=== PATIENT | male | born 1965 | race Caucasian/White ===

== ENCOUNTER 2022-04-17 08:12 | Outpatient (CLI) | payer SELFPAY ==
[2022-04-17 13:05] LABS: Chloride* 105 mmol/L (96-114); Sodium* 138 mmol/L (135-149)
[2022-04-17 13:06] LABS: Potassium* 4.7 mmol/L (3.6-5.1)
[2022-04-17 13:08] LABS: Carbon Dioxide* 26 mmol/L (20-32); Cholesterol* 200 mg/dL (90-199); Estimated Glomerular Filt Rate 87 ml/min
[2022-04-17 13:09] LABS: Blood Urea Nitrogen* 18 mg/dL (7-30); Glucose* 99 mg/dL (60-115); HDL Cholesterol* 72 mg/dL (>=40); LDL Cholesterol Calculated 97 mg/dL (<100); Triglycerides* 155 mg/dL (40-149)
== END 2022-04-17 08:13 | disposition home or self-care (01) ==
PROVIDERS: PCP Family Medicine; Visit Provider Family Medicine
DX: E78.5 Hyperlipidemia, unspecified (principal); I10 Essential (primary) hypertension; E66.9 Obesity, unspecified; F32.9 Major depressive disorder, single episode, unspecified
CPT/HCPCS: 80048; 80061

== ENCOUNTER 2023-06-11 10:32 | Outpatient (CLI) | payer OTHER, SELFPAY | END 2023-06-11 10:33 | disposition home or self-care (01) | PROVIDERS: PCP Family Medicine; Visit Provider Family Medicine | DX: Z00.00 Encounter for general adult medical examination without abnormal findings (principal); I10 Essential (primary) hypertension; E78.5 Hyperlipidemia, unspecified; E66.9 Obesity, unspecified; F41.8 Other specified anxiety disorders; Z12.5 Encounter for screening for malignant neoplasm of prostate | CPT/HCPCS: 80048; 80061; 84153 ==

== ENCOUNTER 2024-09-01 10:09 | Outpatient (CLI) | payer OTHER, SELFPAY | END 2024-09-01 10:10 | disposition home or self-care (01) | PROVIDERS: PCP Family Medicine; Visit Provider Family Medicine | DX: E78.1 Pure hyperglyceridemia (principal); I10 Essential (primary) hypertension | CPT/HCPCS: 80048; 80061 ==

== ENCOUNTER 2025-09-13 14:00 | Outpatient (CLI) | payer OTHER, SELFPAY | END 2025-09-13 14:01 | disposition home or self-care (01) | LOC: NFLDREF 09-19 17:34 | PROVIDERS: PCP Family Medicine; Referring Provider Family Medicine; Visit Provider Family Medicine | DX: E78.5 Hyperlipidemia, unspecified (principal); I10 Essential (primary) hypertension; E78.1 Pure hyperglyceridemia; R20.2 Paresthesia of skin; Z12.5 Encounter for screening for malignant neoplasm of prostate | CPT/HCPCS: 80053; 80061; 83690; G0103 ==